=== PATIENT | male | born 1960 | race Caucasian/White ===

== ENCOUNTER 2023-08-07 09:58 | Day surgery (SDC) | payer MEDICAID ==
[~2023-08-07 09:58] MED LIST: Lactated Ringers 1,000 ML IV SCH; Sodium Chloride 0.9% 10 ML Syringe FLUSH PRN; Sodium Chloride 0.9% 10 ML Syringe FLUSH SCH
[2023-08-07] MEDS ORDERED: dexmedeTOMIDine HCl 200 MCG/2 ML SDV ONE (10:12)
[2023-08-07] MEDS ORDERED: Ropivacaine 0.5% 5 MG/ML 30 ML SDV ONE (10:12)
[2023-08-07] MEDS ORDERED: Midazolam 1 MG/ML 2 ML SDV ONE ×2 (10:22→12:37)
[2023-08-07] MEDS ORDERED: fentaNYL 100 MCG/2 ML SDV ONE ×2 (10:22→12:37)
[2023-08-07] MEDS ORDERED: fentaNYL 100 MCG/2 ML SDV IVPUSH PRN (10:55)
[2023-08-07] MEDS ORDERED: HYDROmorphone 0.5 MG/0.5 ML Syringe IVPUSH PRN (10:55)
[2023-08-07] MEDS ORDERED: Ondansetron 4 MG/2 ML SDV IVPUSH PRN (10:55)
[2023-08-07] MEDS ORDERED: Lidocaine 2% 5 ML SDV ONE (12:37)
[2023-08-07] MEDS ORDERED: Propofol 200 MG/20 ML SDV ONE (12:37)
[2023-08-07] MEDS ORDERED: Metoclopramide 10 MG/2 ML SDV ONE (14:30)
[2023-08-07] MEDS ORDERED: Dexamethasone 4 MG/ML 5 ML MDV ONE (14:30)
[2023-08-07] MEDS: Bupivacaine 0.5% 10 ML SDV ONE ×2 (14:46→15:50)
[2023-08-07] MEDS ORDERED: Lactated Ringers 1,000 ML ONE (15:32)
== END 2023-08-07 18:00 | disposition home or self-care (01) ==
LOC: JD.SDS 09:58
PROVIDERS: ATTEND Podiatrist Foot & Ankle Surgery
DX: E11.621 Type 2 diabetes mellitus with foot ulcer (principal); L97.512 Non-pressure chronic ulcer of other part of right foot with fat layer exposed; M25.871 Other specified joint disorders, right ankle and foot; I73.9 Peripheral vascular disease, unspecified; I10 Essential (primary) hypertension; H61.23 Impacted cerumen, bilateral; D17.20 Benign lipomatous neoplasm of skin and subcutaneous tissue of unspecified limb; E78.00 Pure hypercholesterolemia, unspecified; Z79.899 Other long term (current) drug therapy; Z88.8 Allergy status to other drugs, medicaments and biological substances
CPT/HCPCS: 28022; 28315; 64449; 76000; J0665; J1100; J2250; J2704; J2765; J2795; J3010; J3490; J7120